=== PATIENT | male | born 1995 | race African-American/Black ===

== ENCOUNTER 2020-04-20 08:31 | Emergency (ER) | payer SELFPAY ==
[2020-04-20 08:44] VITALS: BP 141/89; PULSE 99; RESP 12; TEMP 36.8; O2SAT 98
[2020-04-20] MEDS: KETOROLAC (*BKC) 60 MG/2 ML VIAL IM (09:04)
--- NOTE | 2020-04-20 09:09 | ED.EAR ---
HPI - Ear Problem General Chief complaint: Unspecified Stated complaint: bilat jaw pain Time Seen by Provider: 04/20/20 08:34 Source: patient Mode of arrival: ambulatory Limitations: no limitations History of Present Illness HPI Narrative: This patient is 24 year old male with chronic TMJ syndrome who presents with bilateral jaw pain. He states he has been having a flare up of his TMJ. He has been taking ibuprofen 800 mg for his pain and he is still having severe pain. He states his primary care physician is not seeing patient due to COVID 19, and he usually prescribes tramadol for pain. PAtient is requesting a prescription of tramadol. He denies dental pain, nausea, vomiting, fever or difficulty swallowing. Related Data Allergies Allergy/AdvReac Type Severity Reaction Status Date / Time No Known Allergies Allergy Verified 04/20/20 08:47 Review of Systems Review of Systems: All systems reviewed & are unremarkable except as noted in HPI and below PMFSH Past Medical History Medical History (Updated 04/20/20 @ 09:14 by Brandy Ponce MD) TMJ disease Social History Social History (Updated 04/20/20 @ 16:04 by Brandy Ponce MD) Smoking status: Never smoker Exam Const: General: no acute distress and alert Orientation/consciousness: patient oriented x3 HENMT: Head: normocephalic and atraumatic Ears: external ears normal General nose exam: Normal nares present Face and sinus: face symmetric and Facial tenderness on exam of face and sinuses Mouth: Yes lip normal, Yes oropharynx normal, Yes moist mucous membranes and Yes abnormal TMJ (tenderness, no trismus) Teeth and gingiva: fair dentition Throat: posterior oropharynx normal, tonsils normal and uvula midline Eyes: EOM: EOMs intact bilaterally Resp: Effort & Inspection: normal respiratory effort Skin: General skin exam: normal color Rashes: no rashes Neuro: General: patient oriented x3 and moves all extremities Course Vital Signs Vital signs: Vital Signs Temperature 98.3 F 04/20/20 08:44 Pulse Rate 99 04/20/20 08:44 Respiratory Rate 12 04/20/20 08:44 Blood Pressure 141/89 H 04/20/20 08:44 Pulse Oximetry 98 04/20/20 08:44 Temperature 98.3 F 04/20/20 08:44 Pulse Rate 98 04/20/20 09:25 Respiratory Rate 12 04/20/20 09:25 Blood Pressure 141/89 H 04/20/20 08:44 Pulse Oximetry 98 04/20/20 08:44 Medical Decision Making Vital Signs Vital Signs: Vital Signs Temperature 98.3 F 04/20/20 08:44 Pulse Rate 99 04/20/20 08:44 Respiratory Rate 12 04/20/20 08:44 Blood Pressure 141/89 H 04/20/20 08:44 Pulse Oximetry 98 04/20/20 08:44 Temperature 98.3 F 04/20/20 08:44 Pulse Rate 98 04/20/20 09:25 Respiratory Rate 12 04/20/20 09:25 Blood Pressure 141/89 H 04/20/20 08:44 Pulse Oximetry 98 04/20/20 08:44 Discharge Plan Discharge Clinical Impression: Arthralgia of bilateral temporomandibular joint Patient Disposition: Home, Self-Care Condition: Stable Instructions: Antibiotic Form, Temporomandibular Disorder (ED) Additional Instructions: Try one of surrounding dentist for evaluation of your TMj Prescriptions: New tramadol 50 mg tablet 50 mg PO Q6H PRN (Reason: pain) Qty: 10 RF: 0 Follow-up/Referrals: Lawson Corral MD [Physician] - PHYSICIAN,LOGISTICS ASSOCIATE [Primary Care Provider] - Discharge Date/Time: 04/20/20 09:25
[2020-04-20 09:25] VITALS: PULSE 98; RESP 12
== END 2020-04-20 09:25 | disposition home or self-care (01) ==
PROVIDERS: Emergency Provider General Practice
DX: M26.623 Arthralgia of bilateral temporomandibular joint (principal)
CPT/HCPCS: 96372; 99283; J1885

== ENCOUNTER 2020-09-12 08:33 | Emergency (ER) | payer SELFPAY ==
[2020-09-12 08:35] VITALS: BP 137/90; PULSE 100; RESP 15; TEMP 36.4; O2SAT 100
--- NOTE | 2020-09-12 08:44 | ED.GENADULT ---
HPI - General Adult General Chief complaint: Unspecified Stated complaint: TMJ Time Seen by Provider: 09/12/20 08:44 Source: patient Mode of arrival: ambulatory Limitations: no limitations History of Present Illness HPI narrative: A 35-year-old man with history TMJ for last 3 years comes in today with an exacerbation his pain for the last 2 days. Patient states that use using 800 mg ibuprofen regularly for his symptoms but does not seem to be adequate. He states that he has had no ear pain, hearing changes, sore throat, nausea, vomiting, difficulty swallowing, neck pain, headaches or trouble breathing. Onset (ago): day(s) (2) Location: face Radiation: non-radiation Severity: severe Quality: aching Pain Consistency: constant Relieving factors: none Exacerbating factors: movement Associated symptoms: denies other symptoms Treatments prior to arrival: NSAID Related Data Allergies Allergy/AdvReac Type Severity Reaction Status Date / Time No Known Allergies Allergy Verified 04/20/20 08:47 Review of Systems Constitutional: Constitutional: Denies chills and Denies fever(s) ENT: Denies dental pain, Denies dysphagia, Denies otalgia, Denies hearing loss, Denies nasal congestion and Denies sore throat Cardiovascular: Cardiovascular: Denies chest pain Respiratory: Respiratory: Denies cough and Denies dyspnea Gastrointestinal: Gastrointestinal: Denies nausea and Denies vomiting Neurologic: Denies vertigo, Denies dizziness and Denies syncope Allergic/Immunologic: Allergic/Immunologic: Denies throat swelling and Denies tongue swelling PMFSH Past Medical History Medical History TMJ disease Social History Social History (Updated 09/12/20 @ 09:09 by Kota Nelson MD) Smoking status: Never smoker Alcohol intake: never Substance use: never Exam Const: General: cooperative, healthy appearing and acute distress moderate; No ill appearing Nutritional Appearance: average body habitus Orientation/consciousness: patient oriented x3 Limitations: no limitations HENMT: Head: normocephalic and atraumatic Ears: external ears normal, TM's normal bilaterally and EAC's normal General nose exam: Normal external nose present and Normal nares present Face and sinus: normal facial exam Mouth: Yes Normal oral and palatal mucosa present Throat: posterior oropharynx normal and uvula midline Other: Crepitus with jaw movement bilaterally. No swelling, induration, warmth or fluctuance. Eyes: Cornea: corneas normal Pupils: Equal, round and reactive pupils present EOM: EOMs intact bilaterally Neck: Neck: full ROM, no lymphadenopathy, trachea midline, supple and No submandibular swelling Resp: Effort & Inspection: normal respiratory effort, not labored and no stridor Auscultation: clear to auscultation bilaterally, no rales, no rhonchi and no wheezes Cardio: Rate: regular rate Rhythm: regular rhythm Heart sounds: no murmurs Skin: General skin exam: normal color and no jaundice Lesions: no lesions Rashes: no rashes Neuro: General: tone normal and moves all extremities Cranial nerves: Yes CN's II-XII intact bilaterally Cognition (Neuro): normal cognition Speech: normal speech Gait exam (Neuro): Normal gait present Extrem: General: normal to inspection and no clubbing, cyanosis or edema Psych: Appearance: grossly normal and well kempt Mental Status: mental status grossly normal Affect: normal affect Discharge Plan Discharge Clinical Impression: TMJ (temporomandibular joint syndrome) Patient Disposition: Home, Self-Care Condition: Stable Instructions: Temporomandibular Disorder (ED) Additional Instructions: Establish care with a primary care doctor. Prescriptions: New tramadol 50 mg tablet 50 mg PO Q6H PRN (Reason: pain) Qty: 12 RF: 0 Follow-up/Referrals: UNKNOWN,DOCTOR [Primary Care Provider] - Time of Disposition: 09:28
[2020-09-12] MEDS: traMADol HCL (*CRX) 50 MG TABLET PO (09:16)
[2020-09-12 09:35] VITALS: RESP 15; O2SAT 100
== END 2020-09-12 09:35 | disposition home or self-care (01) ==
PROVIDERS: Emergency Provider Emergency Medicine
DX: M26.609 Unspecified temporomandibular joint disorder, unspecified side (principal)
CPT/HCPCS: 99283; A9270

== ENCOUNTER 2020-11-06 16:04 | Emergency (ER) | payer SELFPAY ==
[2020-11-06 16:12] VITALS: BP 120/80; PULSE 70; RESP 18; TEMP 37; O2SAT 99
--- NOTE | 2020-11-06 16:28 | ED.GENADULT ---
HPI - General Adult General Chief complaint: Unspecified Stated complaint: Jaw pain Time Seen by Provider: 11/06/20 16:29 Source: patient and family Mode of arrival: ambulatory Limitations: no limitations History of Present Illness HPI narrative: This young man comes in with pain in both TM joint areas. This sharp, moderately severe pain has been ongoing since last pm when it started. Because the pain is ongoing he seeks assistance. Pain is made worse by opening wide and by chewing, and less severe by keeping his mouth closed. Related Data Allergies Allergy/AdvReac Type Severity Reaction Status Date / Time No Known Allergies Allergy Verified 04/20/20 08:47 Review of Systems Constitutional: Constitutional: Reports no additional constitutional complaints Eyes: Eyes: Reports no additional eye complaints ENT: Reports system reviewed and no additional complaints, except as documented Cardiovascular: Cardiovascular: Reports no additional cardiovascular complaints Respiratory: Respiratory: Reports no additional respiratory complaints Gastrointestinal: Gastrointestinal: Reports no additional gastrointestinal complaints Genitourinary: Genitourinary: Reports no additional male genitourinary complaints Musculoskeletal: Musculoskeletal: Reports no additional musculoskeletal complaints Integumentary/Breasts: Skin/Breast: Reports system reviewed and no additional complaints, except as docu Neurologic: Reports system reviewed and no additional complaints, except as documented Psychiatric: Psychiatric: Reports no additional psychiatric complaints Endocrine: Endocrine: Reports no additional endocrine complaints Hematologic/Lymphatic: Hematologic/Lymphatic: Reports no additional hematologic/lymphatic complaints Allergic/Immunologic: Allergic/Immunologic: Reports no additional allergic/immunologic complaints PMFSH Past Medical History Medical History TMJ disease Surgical History Surgical History (Updated 11/07/20 @ 00:19 by rEik Montelongo MD) No significant past surgical history Family History Family History Mother Hypertension Father Chronic kidney disease Social History Social History Smoking status: Never smoker Alcohol intake: never Substance use: never Gender identity (if verbalized by the patient): Male Exam Const: General: cooperative and no acute distress Nutritional Appearance: well nourished Orientation/consciousness: oriented to person Limitations: no limitations HENMT: Head: normal to inspection and other (noteable pop when opening his jaws and I can feel his TMJ areas pop) Ears: hearing grossly normal bilaterally General nose exam: Normal external nose present Face and sinus: normal facial exam Mouth: Yes Normal oral and palatal mucosa present Throat: posterior oropharynx normal Eyes: Conjunctivae: conjunctivae normal Cornea: corneas normal EOM: EOMs intact bilaterally Neck: Neck: normal visual inspection Carotids: normal carotid upstroke Chest: Chest palpation & inspection: normal inspection of the chest Resp: Effort & Inspection: normal respiratory effort Auscultation: clear to auscultation bilaterally Cardio: Jugular venous distension: no JVD Palpation: normal PMI Rate: regular rate Rhythm: regular rhythm GI: Inspection: normal to inspection Rectal Exam: deferred Back/Spine/Pelvis: Back: no CVA tenderness Skin: General skin exam: normal color Neuro: General: oriented to person and oriented to place Cognition (Neuro): normal cognition Speech: normal speech Gait exam (Neuro): Normal gait present Motor exam (neuro): 5/5 motor strength present throughout, No tremor noted and Normal motor muscle tone present throughout Extrem: General: normal to inspection Right lower extremity: normal to inspection Left lower e
[2020-11-06] MEDS: traMADol HCL (*CRX) 50 MG TABLET PO (16:47)
[2020-11-06 16:49] VITALS: BP 120/72; PULSE 78; RESP 18; TEMP 36.6; O2SAT 98
== END 2020-11-06 16:51 | disposition home or self-care (01) ==
DX: M26.609 Unspecified temporomandibular joint disorder, unspecified side (principal)
CPT/HCPCS: 99283; A9270

== ENCOUNTER 2020-12-30 11:29 | Emergency (ER) | payer SELFPAY ==
[2020-12-30 11:35] VITALS: BP 134/103; PULSE 100; RESP 16; TEMP 37.1; O2SAT 96
--- NOTE | 2020-12-30 13:38 | ED.DENTAL ---
HPI - Dental/Oral General Chief complaint: Dental/Oral Stated complaint: jaw pain Source: patient and family Mode of arrival: ambulatory History of Present Illness HPI Narrative: pt has jaw pain, it has been flared recently. he finds tramadol and presnisone help him the most. He has been here several time for the same pain.He tells me has an appointment with TMJ specialist coming up. TOld him that he needs a pcp and we offered local dr list. Onset (ago): hour(s) Duration: constant Severity: mild Exacerbating factors: chewing Context: history of dental caries Related Data Allergies Allergy/AdvReac Type Severity Reaction Status Date / Time No Known Allergies Allergy Verified 04/20/20 08:47 Review of Systems Review of Systems: All systems reviewed & are unremarkable except as noted in HPI and below PMFSH Past Medical History Medical History TMJ disease Surgical History Surgical History No significant past surgical history Family History Family History Mother Hypertension Father Chronic kidney disease Social History Social History Smoking status: Never smoker Alcohol intake: never Substance use: never Gender identity (if verbalized by the patient): Male Exam Const: General: no acute distress Nutritional Appearance: well nourished Orientation/consciousness: patient oriented x3 HENMT: Head: normal to inspection Eyes: Conjunctivae: conjunctivae normal Pupils: Equal, round and reactive pupils present Neck: Neck: normal visual inspection Chest: Chest palpation & inspection: normal inspection of the chest Resp: Effort & Inspection: normal respiratory effort Cardio: Rate: regular rate Rhythm: regular rhythm GI: GI Palp: Yes Soft to palpation and No Tenderness to palpation present (GI) Back/Spine/Pelvis: Back: no CVA tenderness Skin: General skin exam: normal color Neuro: General: patient oriented x3 and moves all extremities Extrem: General: normal to inspection Psych: Appearance: grossly normal Mental Status: mental status grossly normal Thought content: Yes Normal thought content present Course Course Emergency Course: pt was told that no further refills for pain meds will be given in this ED as he really needs a PCP for med refills. pt aware. Vital Signs Vital signs: Vital Signs Temperature 37.1 C 12/30/20 11:35 Pulse Rate 100 12/30/20 11:35 Respiratory Rate 16 12/30/20 11:35 Blood Pressure 134/103 H 12/30/20 11:35 Pulse Oximetry 96 12/30/20 11:35 Temperature 37.1 C 12/30/20 11:35 Pulse Rate 100 12/30/20 11:35 Respiratory Rate 15 12/30/20 13:49 Blood Pressure 134/103 H 12/30/20 11:35 Pulse Oximetry 96 12/30/20 11:35 Discharge Plan Discharge Clinical Impression: TMJ (temporomandibular joint syndrome) Patient Disposition: Home, Self-Care Condition: Stable Instructions: Temporomandibular Disorder (ED) Prescriptions: New prednisone 20 mg tablet 20 mg PO DAILY Qty: 18 RF: 0 tramadol 50 mg tablet 50 mg PO Q6H PRN (Reason: pain) Qty: 10 RF: 0 Follow-up/Referrals: PHYSICIAN NOT ON STAFF,NONSTAFF [Primary Care Provider] - Stand Alone Forms: Work/School Release IP Time of Disposition: 13:40
[2020-12-30 13:49] VITALS: RESP 15
== END 2020-12-30 13:50 | disposition home or self-care (01) ==
PROVIDERS: Emergency Provider Emergency Medicine
DX: M26.609 Unspecified temporomandibular joint disorder, unspecified side (principal)
CPT/HCPCS: 99283